=== PATIENT | female | born 1970 | race Caucasian/White ===

== ENCOUNTER 2016-08-11 04:04 | Emergency (ER) | payer MEDICARE, MEDICAID ==
[~2016-08-11] VITALS: Ht 167.6 cm; Wt 63.5 kg
[2016-08-11 04:17] VITALS: BP 130/106
== END 2016-08-11 04:35 | disposition left against medical advice (07) ==
LOC: ER 04:06
DX: T40.2X1A Poisoning by other opioids, accidental (unintentional), initial encounter (principal); R73.9 Hyperglycemia, unspecified; Y92.9 Unspecified place or not applicable
CPT/HCPCS: 99283; A4606; Z7610

== ENCOUNTER 2016-10-11 22:17 | Emergency (ER) | payer MEDICAID, MEDICARE, OTHER ==
[~2016-10-11] VITALS: Ht 162.6 cm; Wt 65.8 kg
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
--- NOTE | 2016-10-11 22:44 | NUR ---
XRAY AT BEDSIDE
[2016-10-11 23:41] VITALS: BP 110/73
== END 2016-10-11 23:42 | disposition home or self-care (01) ==
LOC: ER 22:19
DX: S83.91XA Sprain of unspecified site of right knee, initial encounter (principal); B99.9 Unspecified infectious disease; M26.621 Arthralgia of right temporomandibular joint; X58.XXXA Exposure to other specified factors, initial encounter; Y92.89 Other specified places as the place of occurrence of the external cause; Y93.89 Activity, other specified; Y99.8 Other external cause status
CPT/HCPCS: 73564-TC; A4606; Z7610

== ENCOUNTER 2017-10-19 06:00 | Inpatient (IN) | payer MEDICARE, MEDICAID ==
[~2017-10-19] VITALS: Ht 175.3 cm; Wt 74.8 kg
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
[2017-10-19] MEDS ORDERED: OLANZAPINE 10 MG VIAL IM ONE ×2 (06:50→07:00)
[2017-10-19] MEDS ORDERED: LORAZEPAM INJ 2 MG/ML VIAL ONE (06:50)
[2017-10-19] MEDS ORDERED: PIPERACILLIN /TAZOBACTAM 3.375 G VIAL IV ONE (06:57)
[2017-10-19] MEDS ORDERED: IV NS 0.9% 1,000 ML BAG IV ONE (07:00)
[2017-10-19] MEDS ORDERED: LORAZEPAM INJ 2 MG/ML VIAL IV ONE (07:00)
[2017-10-19] MEDS ORDERED: PIPERACILLIN /TAZOBACTAM 3.375 G in IV D5W 50 ML IV ONE (07:00)
--- NOTE | 2017-10-19 07:06 | NUR ---
EMT AT BEDSIDE FOR EKG.
--- NOTE | 2017-10-19 07:07 | NUR ---
XRAY AT BEDSIDE.
--- NOTE | 2017-10-19 07:11 | NUR ---
ENDORSED TO KARINA PATEL FOR MJ.
[2017-10-19 07:15] LABS: BASOPHILS % (AUTO) 0.5 % (0.0-2.0); EOSINOPHILS % (AUTO) 0.6 % (0.0-6.0); HEMATOCRIT 31 % (33-45); HEMOGLOBIN 10.5 g/dL (11.5-14.8); LYMPHOCYTES # (AUTO) 1.5 /CMM (0.8-4.8); LYMPHOCYTES % (AUTO) 22.8 % (20.0-44.0); MEAN CORPUSCULAR HGB CONC 34 g/dl (31.0-36.0); MEAN CORPUSCULAR VOLUME 94 fL (82-100); MONOCYTES # (AUTO) 0.6 /CMM (0.1-1.30); MONOCYTES % (AUTO) 9.2 % (2.0-12.0); NEUTROPHILS # (AUTO) 4.5 /CMM (1.8-8.9); NEUTROPHILS % (AUTO) 66.9 % (43.0-81.0); PLATELET COUNT (AUTO) 207 /CMM (150-450); RDW COEFFICIENT OF VARIATION 14.6 (11.5-15.0); RED BLOOD CELL COUNT(AUTO) 3.25 MIL/uL (4.0-5.2); WHITE BLOOD COUNT (AUTO) 6.8 K/uL (4.3-11.0)
[2017-10-19 07:26] LABS: CALCIUM, SERUM 8.4 mg/dL (8.5-10.1); CARBON DIOXIDE 25 mmol/L (21-32); CHLORIDE 102 mmol/L (98-107); CREATININE 0.7 mg/dL (0.6-1.3); GLUCOSE 96 mg/dL (74-106); POTASSIUM 3.3 mmol/L (3.5-5.1); SODIUM SERUM 140 mmol/L (136-145); UREA NITROGEN, BLOOD 17 mg/dL (7-18)
[2017-10-19 07:28] LABS: INR 0.94 (0.87-1.13)
[2017-10-19 07:30] LABS: SALICYLATE 0.5 mg/dL (2.8-20.0)
[2017-10-19 07:32] LABS: ALANINE AMINOTRANSFERASE 39 U/L (12-78); ALBUMIN 3.2 g/dL (3.4-5.0); ALKALINE PHOSPHATASE 97 U/L (46-116); ASPARTATE AMINOTRANSFERASE 50 U/L (15-37); BILIRUBIN,DIRECT 0.2 mg/dL (0.0-0.2); BILIRUBIN,TOTAL 0.6 mg/dL (0.2-1.0); TOTAL PROTEIN, SERUM 7.6 g/dL (6.4-8.2)
[2017-10-19 07:34] LABS: TROPONIN I < 0.017 ng/mL (0.00-0.056)
--- NOTE | 2017-10-19 09:40 | NUR ---
XRAY AT BEDSIDE
[2017-10-19] MEDS ORDERED: ENOXAPARIN SODIUM 80 MG/0.8 ML DISP.SYRIN SQ ONE (10:28)
[2017-10-19] MEDS ORDERED: ENOXAPARIN SODIUM 60 MG/0.6 ML DISP.SYRIN SQ ONE (10:30)
--- NOTE | 2017-10-19 10:35 | NUR ---
panel on-call paged
[2017-10-19 13:07] VITALS: BP 134/94
--- NOTE | 2017-10-19 13:10 | NUR ---
CABLE TOWER OPERATOR NOTES RECEIVED PATIENT FROM ER VIA GURNEY FROM RN JORGE, PATIENT AOX3, ROOM AIR, VITALS WNL, PATIENT REFUSING TREATMENT AND STATING SHE WANTS TO LEAVE, ADMITTING MD DR ALLEN NOTIFIED OF PATIENTS WISHES. I INFORMED THE PATIENT ABOUT THE DANGER OF LEAVING WITH A DVT AND POSSIBLE RISK OF BLOOD CLOTS AND TEACHING DONE ON CELLULITES AND THE NEED FOR ANTIBIOTICS PATIENT STATED SHE WILL GET TREATMENT ELSEWHERE. FIELD STAFF MADE OF PATIENT WISHES. PATIENT CAME WITHOUT SHOES ABLE TO PROVIDE SANDALS . UNABLE TO DO ASSESSMENTS.
--- NOTE | 2017-10-19 13:15 | NUR ---
SET UP MECHANIC CROWN ASSEMBLY MACHINE NOTES INCIDENT REPORT DONE FOR AMA ID: [id number]. PATIENT REFUSED TO TAKE EXITCARE INSTRUCTIONS.
== END 2017-10-19 13:20 | disposition left against medical advice (07) | DRG 603 ==
LOC: ER 06:01 → TELE1 10:41
PROVIDERS: ADMIT Nurse Practitioner Acute Care; ATTEND Nurse Practitioner Acute Care
DX: L03.115 Cellulitis of right lower limb (principal); F15.20 Other stimulant dependence, uncomplicated; D63.8 Anemia in other chronic diseases classified elsewhere; E87.6 Hypokalemia; F17.210 Nicotine dependence, cigarettes, uncomplicated; F31.9 Bipolar disorder, unspecified; F10.229 Alcohol dependence with intoxication, unspecified; T51.0X1A Toxic effect of ethanol, accidental (unintentional), initial encounter; Y90.6 Blood alcohol level of 120-199 mg/100 ml
CPT/HCPCS: 36415; 73610-TC; 73630-TC; 80048-TC; 80076-TC; 83605-TC; 84484-TC; 84703-TC; 85025-TC; 85730-TC; 87040-TC; 87081-TC; 93971-TC; A4606; G0480; J1650; J2060; J2543; J3490; J7030; J7060; Z7610